=== PATIENT | male | born 1995 | race Two or more races ===

== ENCOUNTER 2017-07-31 19:58 | Emergency (ER) | payer SELFPAY ==
[~2017-07-31] VITALS: Ht 175.3 cm; Wt 96.6 kg
[2017-07-31 20:10] VITALS: BP 135/82
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
--- NOTE | 2017-07-31 20:18 | NUR ---
Patient eloped from facility. ER MD notified.
== END 2017-07-31 20:20 | disposition left against medical advice (07) ==
LOC: ER 20:00
DX: F11.10 Opioid abuse, uncomplicated (principal)
CPT/HCPCS: A4606; Z7610

== ENCOUNTER 2020-07-31 23:56 | Emergency (ER) | payer OTHER ==
[~2020-07-31] VITALS: Ht 188 cm; Wt 93.0 kg
[2020-07-31 23:56] VITALS: BP 125/75
[2020-08-01] MEDS ORDERED: CEPH500T PO (00:39)
[2020-08-01] MEDS ORDERED: SULF1TAB48 PO (00:39)
== END 2020-08-01 00:44 | disposition home or self-care (01) ==
LOC: ER 08-01 00:22
DX: L03.113 Cellulitis of right upper limb (principal)

== ENCOUNTER 2024-12-04 16:21 | Emergency (ER) | payer BC, OTHER ==
[~2024-12-04] VITALS: Ht 188 cm; Wt 108.9 kg
[~2024-12-04 16:21] MED LIST: CEPH500T PO; SULF1TAB48 PO
[2024-12-04 16:37] VITALS: BP 100/55; TEMP 97.8; O2SAT 98
== END 2024-12-04 18:42 | disposition home or self-care (01) ==
LOC: ER 16:28
DX: S40.841A External constriction of right upper arm, initial encounter (principal); X58.XXXA Exposure to other specified factors, initial encounter; Y93.89 Activity, other specified; Y92.89 Other specified places as the place of occurrence of the external cause; Y99.9 Unspecified external cause status